=== PATIENT | female | born 1955 | race Caucasian/White ===

== ENCOUNTER 2018-10-09 08:35 | Outpatient (CLI) | payer MEDICARE ==
--- NOTE | 2018-10-09 10:06 | MMO ---
BILATERAL MAMMOGRAMS: DATE: 10/09/18 HISTORY: Screening mammography. COMPARISON: 12/13/16. FINDINGS: Fatty replaced tissue. Benign-appearing calcifications. No dominant mass or suspicious calcifications . The study was evaluated with the assistance of computer-aided detection. IMPRESSION: BIRADS 1: Negative. Suggest routine follow-up. POS: ERNA
== END 2018-10-09 08:36 | disposition home or self-care (01) ==
LOC: SCSMAMMO 08:35
PROVIDERS: ATTEND Family Medicine
DX: Z12.31 Encounter for screening mammogram for malignant neoplasm of breast (principal)
CPT/HCPCS: 77067

== ENCOUNTER 2020-03-23 12:12 | Observation (INO) | payer MEDICARE, OTHER ==
--- NOTE | 2020-03-23 12:41 | RAD ---
EXAM: Chest one view: HISTORY: Chest pain, chest pressure COMPARISON: None FINDINGS: Heart size: Within normal limits. Lungs: Clear of acute process. No evidence for confluent pneumonia, pleural effusion, acute edema, or pneumothorax, or other signifi cant acute process. IMPRESSION: No significant acute intrathoracic disease. Atherosclerosis of the aorta.
[2020-03-23 12:43] LABS: #Basophils 0.1 thou/uL (0.0-0.2); #Eosinphils 0.3 thou/uL (0.0-0.7); #Lymphocytes 2.6 thou/uL (1.20-3.40); #Neutrophils 6.2 thou/uL (1.40-6.50); %Basophils 1.3 % (0.0-1.0); %Lymphocytes 25.7 % (21.0-51.0); %Monocytes 9.3 % (0.0-10.0); %Neutrophils 60.7 % (42.0-75.0); Hemoglobin 16.6 g/dL (12.0-16.0); Mean Corpuscular HGB CONC 34.6 g/dL (32.0-36.0); Mean Corpuscular Hemoglobin 31.5 pg (27.0-31.0); Mean Corpuscular Volume 91.2 fL (78.0-98.0); Mean Platelet Volume 9.6 fL (7.4-10.4); Platelet Count 268 thou/uL (130-400); RBC Distribution Width 11.4 % (11.5-14.5); Red Blood Cell (RBC) Count 5.26 mill/uL (4.20-5.40); White Blood Cell (WBC) Count 10.2 thou/uL (4.8-10.8)
[2020-03-23] MEDS ORDERED: Aspirin Chewable 81 MG TAB ONE (12:46)
[2020-03-23] MEDS ORDERED: Labetalol HCl 100 MG/20 ML VIAL ONE (12:46)
[2020-03-23 13:22] LABS: ALT (SGPT) 59 U/L (8-55); AST (SGOT) 67 U/L (5-34); Albumin 4.4 g/dL (3.4-4.8); Alkaline Phosphatase 108 U/L (40-110); Anion Gap 23 mmol/L (10-20); BUN (Urea Nitrogen) 21 mg/dL (9.8-20.1); Bilirubin, Total 2.2 mg/dL (0.2-1.2); CK (CPK) 91 U/L (29-168); Calc. Creatinine Clearance 0 mL/min (70-130); Calcium 9.9 mg/dL (7.8-10.44); Carbon Dioxide 22 mmol/L (23-31); Chloride 92 mmol/L (98-107); Estimated GFR-MDRD 34; Globulin 3.8 g/dL (2.4-3.5); Glucose 504 mg/dL (80-115); Lipase 206 U/L (8-78); Potassium 4.2 mmol/L (3.5-5.1); Protein, Total 8.2 g/dL (6.0-8.3); Sodium 133 mmol/L (136-145)
[2020-03-23] MEDS ORDERED: Enoxaparin Sodium 100 MG/ML SYRINGE ONE (15:14)
[2020-03-23] MEDS ORDERED: Acetaminophen 650 MG Suppository PR PRN (17:14)
[2020-03-23] MEDS ORDERED: Acetaminophen 325 MG TAB PO PRN (17:14)
[2020-03-23] MEDS ORDERED: Dextrose 50% Abboject 50 ML SYRINGE SLOW IVP PRN (17:26)
[2020-03-23] MEDS ORDERED: Dextrose 5% in Water 1,000 ML IV PRN (17:26)
[2020-03-23] MEDS: Famotidine/PF 20 mg/2ml Vial SLOW IVP SCH (20:47)
[2020-03-23] MEDS: HumaLOG 300 UNITS/3 ML VIAL SC PRN (20:47)
[2020-03-23 21:29] LABS: Albumin 3.9 g/dL (3.4-4.8); Anion Gap 18 mmol/L (10-20); BUN (Urea Nitrogen) 20 mg/dL (9.8-20.1); Calc. Creatinine Clearance 0 mL/min (70-130); Calcium 9.5 mg/dL (7.8-10.44); Carbon Dioxide 27 mmol/L (23-31); Chloride 95 mmol/L (98-107); Estimated GFR-MDRD 36; Glucose 416 mg/dL (80-115); Phosphorus 2.6 mg/dL (2.3-4.7); Potassium 3.4 mmol/L (3.5-5.1); Sodium 137 mmol/L (136-145)
[2020-03-23] MEDS ORDERED: Potassium Chloride 20 MEQ TAB PO SCH (22:30)
--- NOTE | 2020-03-23 23:16 | ULT ---
BILATERAL LOWER EXTREMITY VENOUS DUPLEX STUDY: Date: 03/23/2020 INDICATION: Lower extremity pain and edema. Elevated D-Dimer. FINDINGS: Deep veins evaluated with ultrasound and Doppler, with color Doppler, spectral analysis, and compress ion. FINDINGS: Deep veins of left lower extremity show normal blood flow and compression. Deep veins of right lower extremity show normal blood flow. The right distal superficial femoral vein showed decreased compression. No evidence of thrombus. The decreased compression may represent phleb itis. IMPRESSION: 1. No evidence of lower extremity deep vein thrombosis. 2. Decreased compression in the right superficial vein distally. This could represent phlebitis. Panchito espinosa close clinical follow-up. POS: TRACEY
--- NOTE | 2020-03-24 00:43 | HP ---
TIME OF ASSESSMENT: 1630. PRIMARY CARE PHYSICIAN: Carolyn oJnes MD CHIEF COMPLAINT: Chest pain and shortness of breath with exertion. HISTORY OF PRESENT ILLNESS: Ms. Falk is a pleasant 64-year-old woman who presents to the emergency department due to persisting central chest pressure. The patient states she first started feeling badly approximately 1 month ago with general fatigue and malaise. She states for the last 2 to 3 months, she has not been as active as she used to be with doing her exercises and maintaining an adequate diet. She thought that perhaps it was just the fact that she was out of shape. Her symptoms persisted and then 10 days ago, she developed what she describes as tightness in her chest with soreness across her entire ribcage. The patient has required diuretics for fluid retention in the past. Since then, she also noted associated general bloating and puffiness in her legs. She opted to start her p.r.n. Lasix. She began to feel much better in terms of the tightness, but then felt an underlying substernal pressure. She felt the fluid retention in her legs and that improved as well. She has noted that with minimal exertion she becomes short of breath and fatigued. She was even worried about washing her hair today and her had to help her due to fear that she would pass out. She denies having any fevers, chills, or sweats. Her appetite has been low and p.o. intake has diminished, but she denies any nausea or vomiting. No abdominal pain. She continues to have regular bowel movements once daily. She has not noted any blood in the stools. No urinary symptoms. No cough or hemoptysis. All other review of systems are negative. EMERGENCY DEPARTMENT COURSE: In the emergency department, the patient was noted to be tachycardiac on initial presentation with a heart rate of 120. She had an EKG done showing normal sinus rhythm with a heart rate of [address] changes or T-wave abnormalities. She had a chest x-ray done which showed atherosclerosis of the aorta and otherwise no significant acute intrathoracic disease. She had laboratory studies done which were notable for an elevated D-dimer of 1.18 and an indeterminate troponin of 0.033. Her white count was 10.2, hemoglobin 16.6, hematocrit 48, platelets 268. Sodium 133, potassium 4.2, BUN 21, creatinine 1.53, which has increased from her baseline of 0.88. GFR 34 compared to 64 in October 2019. Glucose 504. Magnesium 2.0. LFTs elevated with a total bilirubin of 2.2, AST 67, ALT 59, alkaline phosphatase 108, lipase 206. CK was 91. BNP less than 10. Albumin 4.4. The patient's sats were normal in the emergency department and given her tachycardia as well as elevated D-dimer, the decision was made in the ED to treat her with enoxaparin and she received 200 mg. She was also scheduled for a V/Q scan given her renal function. The patient received 1 L of normal saline while in the emergency department given her renal function. Due to initial elevated blood pressure of 190/112, she was given labetalol 20 mg IV x1. Blood pressure then improved to 140/79. She was also given 325 mg of aspirin due to the indeterminate troponin. PAST MEDICAL HISTORY: 1. Hyperlipidemia. 2. Hypertension. 3. Prediabetic. 4. Obesity. PAST SURGICAL HISTORY: Colonoscopy in December 2016, status post polypectomy (2 small cecal polyps removed). Noted to have left-sided diverticulosis with internal hemorrhoids. SOCIAL HISTORY: The patient denies any tobacco use, alcohol consumption, or illicit drug use. FAMILY HISTORY: Noncontributory. PHYSICAL EXAMINATION: GENERAL: The patient appears well developed, well nourished, and is in no acute distress. She is resting comfortably on the stretcher. VITAL SIGNS: Temperature 98.5, pulse 77, blood pressure 140/79, respirations 15, O2 100% on room air. HEENT: Normocephalic and atraumatic. Pupils are equal, round, and reactive to light. Sclerae icterus. Oropharynx is clear. Oral mucosa is dry. NECK: Supple. LUNGS: Clear to auscultation bilaterally without any wheezes, rales, or rhonchi. CARDIAC: Regular rate and rhythm. No reproducible chest pain on exam. ABDOMEN: Obese, soft, nontender, nondistended. No guarding or rigidity. Negative Fields sign. EXTREMITIES: She does have puffiness of her feet and lower extremities, but no pitting edema. No calf tenderness. Peripheral pulses present and equal bilaterally. SKIN: Warm and dry. INVESTIGATIONS: As mentioned above in HPI. IMPRESSION AND PLAN: Ms. Falk is a 64-year-old woman who has felt generally unwell for the last month and developed chest pressure 10 days ago with signs and symptoms concerning for fluid retention, which she self treated with Lasix with some improvement. However, she has continued with persistent chest discomfort since then and shortness of breath with exertion. She is being admitted for management of the following. 1. Chest pain. Initial troponin indeterminate and she was given aspirin 325 mg in the ED. We will check lipid panel with morning labs as well as TSH. Continue cardiac monitoring and continue to trend troponins. We will keep the patient n.p.o. after midnight. 2. Shortness of breath with exertion. The patient with an elevated D-dimer and therefore scheduled for V/Q scan which was ordered while she was in the ED. She was also given a one time dose of Lovenox 100 mg subcutaneous. We will await results of V/Q scan, but we will go ahead and order venous Dopplers given the recent lower extremity swelling to assess for possible deep venous thrombosis. If positive, we will continue with anticoagulation. 3. Acute kidney injury. The patient did admit to reduced oral intake. This could be contributing to her general malaise and tachycardia. She is given a liter of normal saline in the ED, but given her history of fluid retention, we will continue with very gentle hydration. Her heart rate has improved to 77, however, she did receive labetalol for her elevated blood pressure. As mentioned above, she will be on cardiac monitoring. The other possible contributing factor for tachycardia is presence of PE and the patient as mentioned is undergoing workup for this as well. 4. Elevated LFTs. The patient without any GI symptoms or abdominal discomfort. We will repeat LFTs with morning labs and we will add on a direct bilirubin. They tend to decide if any further workup indicated. 5. General malaise/fatigue. The patient did state she has been less active than she usually is for the last 2 months due to current issues with COVID and trying to keep herself at home. She could not just be generally deconditioned in combination with acute kidney injury and other underlying issues. We will check for any underlying infection, such as urinary tract infection. We will obtain urinalysis and urine culture. PT/OT has been consulted. 6. Hypertension, uncontrolled on initial presentation, but improved with labetalol. We will monitor blood pressure and reconcile home medications once verified. 7. Hyperglycemia. The patient with glucose of 504. We will continue to monitor blood glucose and reconcile home medications once verified. We will add hemoglobin A1c to morning labs. The patient claims being prediabetic. However, it looks like she has been on metformin in the past. We will initiate insulin sliding scale. 8. Gastrointestinal prophylaxis with famotidine. 9. Code status full. Surrogate decision maker is her , Skyler Falk. 10. COVID testing requested and pending. We will place the patient on isolation precautions. Case was discussed with attending, who agrees with plan of care as described above. She has been feeling generally unwell. With this along, we will go ahead and test for COVID. Job ID: [id number]
[2020-03-24 02:24] VITALS: BMI 55.9
[2020-03-24 05:48] LABS: #Basophils 0.1 thou/uL (0.0-0.2); #Eosinphils 0.4 thou/uL (0.0-0.7); #Lymphocytes 2.8 thou/uL (1.20-3.40); #Neutrophils 4.4 thou/uL (1.40-6.50); %Basophils 1.6 % (0.0-1.0); %Lymphocytes 31.7 % (21.0-51.0); %Monocytes 11.6 % (0.0-10.0); %Neutrophils 50.1 % (42.0-75.0); Hemoglobin 14.9 g/dL (12.0-16.0); Mean Corpuscular HGB CONC 32.6 g/dL (32.0-36.0); Mean Corpuscular Hemoglobin 30.8 pg (27.0-31.0); Mean Corpuscular Volume 94.5 fL (78.0-98.0); Platelet Count 210 thou/uL (130-400); RBC Distribution Width 11.4 % (11.5-14.5); Red Blood Cell (RBC) Count 4.83 mill/uL (4.20-5.40); White Blood Cell (WBC) Count 8.7 thou/uL (4.8-10.8)
[2020-03-24 05:55] LABS: Albumin 3.6 g/dL (3.4-4.8); Anion Gap 16 mmol/L (10-20); BUN (Urea Nitrogen) 20 mg/dL (9.8-20.1); Calc. Creatinine Clearance 107 mL/min (70-130); Calcium 9.1 mg/dL (7.8-10.44); Carbon Dioxide 24 mmol/L (23-31); Chloride 94 mmol/L (98-107); Estimated GFR-MDRD 43; Glucose 309 mg/dL (80-115); Lipase 143 U/L (8-78); Potassium 3.5 mmol/L (3.5-5.1); Sodium 130 mmol/L (136-145); Triglycerides 259 mg/dL (Less than 150)
[2020-03-24 05:56] LABS: Bilirubin, Total 1.7 mg/dL (0.2-1.2)
[2020-03-24 05:57] LABS: Protein, Total 6.7 g/dL (6.0-8.3)
[2020-03-24 06:00] LABS: Alkaline Phosphatase 82 U/L (40-110); Cholesterol 197 mg/dl (< 200 Desired)
[2020-03-24 06:02] LABS: AST (SGOT) 38 U/L (5-34); Bilirubin, Direct 0.6 mg/dL (0.1-0.3)
[2020-03-24 06:03] LABS: ALT (SGPT) 44 U/L (8-55); Cardiac Risk 6.8 (Less than 4.5); HDL Cholesterol 29 mg/dL (>60 Neg Risk); LDL Cholesterol, Calculated 116 mg/dL
[2020-03-24] MEDS: HumaLOG 300 UNITS/3 ML VIAL SC PRN ×4 (06:22→21:53)
[2020-03-24] MEDS ORDERED: Nitroglycerin 0.4 MG TAB (25 Tab Bottle) PO PRN (08:17)
--- NOTE | 2020-03-24 09:19 | PDOC.HOSPP ---
- Subjective Encounter Date: 03/24/20 Encounter Time: 10:02 Subjective: Patient states she has had no worsening or improvement in her chest tightness. Denies any associated SOB. Reports sleeping very well last night and denies any other complaints. States she has been thinking about her glucose and how high it is. She was previously on Metformin but it caused diarrhea therefore she stopped taking it. Reports being noncompliant in the past with keeping up with her appointments and taking her diabetes medications. She saw her PCP a few months ago and resuming meds was something they discussed however she was reluctant and due to staying quarantined she was lost to follow-up. Admits to eating poorly at home the last 2-3 months but states she is willing to do anything to get healthy and take any medications. - Objective Vital Signs & Weight: Vital Signs (12 hours) Temp Pulse Resp BP Pulse Ox 03/24/20 04:27 97.4 F L 75 16 140/83 96 03/23/20 23:13 97.9 F 76 17 120/65 94 L Weight Weight 336 lb 4.8 oz I&O: 03/23/20 03/24/20 03/25/20 06:59 06:59 06:59 Intake Total 300 Balance 300 Result Diagrams: 03/24/20 05:30 03/25/20 04:54 Additional Labs: Accuchecks 03/24/20 03/23/20 06:09 20:39 POC Glucose 314 H 420 H Laboratory Tests 03/23/20 12:31 Potassium 4.2 Creatinine 1.53 H Radiology Reviewed by me: Yes (CXR - no infiltrate) EKG Reviewed by me: Yes (Tele SR) Hospitalist ROS - Review of Systems Constitutional: denies: fever, chills, sweats, weakness, malaise, other Eyes: denies: pain, vision change, conjunctivae inflammation, eyelid inflammation, redness, other ENT: denies: ear pain, ear discharge, nose pain, nose discharge, nose congestion , mouth pain, mouth swelling, throat pain, throat swelling, other Respiratory: reports: SOB with excertion. denies: cough, dry, shortness of breath, hemoptysis, pleuritic pain, sputum, wheezing, other Cardiovascular: denies: chest pain, palpitations, orthopnea, paroxysmal noc. dyspnea, edema, light headedness, other Gastrointestinal: denies: nausea, vomiting, abdominal pain, diarrhea, constipation, melena, hematochezia, other Genitourinary: denies: dysuria, frequency, incontinence, hematuria, retention, other Musculoskeletal: reports: other (leg swelling). denies: neck pain, shoulder pain, arm pain, back pain, hand pain, leg pain, foot pain Skin: denies: rash, lesions, juan, bruising, other Neurological: denies: weakness, numbness, incoordination, change in speech, confusion, seizures, other - Medication Medications: Active Medications Generic Name Dose Route Start Last Admin Trade Name Freq PRN Reason Stop Dose Admin Famotidine 20 mg 03/23/20 21:00 03/23/20 20:47 Pepcid SLOW IVP 20 mg Q12HR CHUCK Administration Insulin Human Lispro 0 units 03/23/20 17:26 03/24/20 06:22 Humalog SC 5 unit .MILD SLIDING SCALE PRN Administration Mild Correctional Scale Insulin Human Lispro 0 units 03/23/20 17:26 03/23/20 20:47 Humalog SC 5 unit .BEDTIME SLIDING SC PRN Administration Bedtime Correctional Scale - Exam General Appearance: NAD Eye: PERRL, anicteric sclera ENT: normocephalic atraumatic, no oropharyngeal lesions, moist mucosa Neck: supple, no lymphadenopathy Heart: RRR, no murmur, no rubs, normal peripheral pulses Respiratory: CTAB, no wheezes, no rales, no ronchi, normal chest expansion Gastrointestinal: soft, non-tender, non-distended, normal bowel sounds Extremities: no cyanosis, no edema Skin: normal turgor, no lesions, no rashes Neurological: cranial nerve grossly intact, normal sensation to touch, no weakness Musculoskeletal: normal tone, normal strength, no muscle wasting Psychiatric: normal affect, normal behavior, A&O x 3 Hosp A/P (1) Chest pain Code(s): R07.9 - CHEST PAIN, UNSPECIFIED Status: Acute Plan: Troponins negative. Continue cardiac monitoring. VQ scan - negative Echo pending (2) SOB (shortness of breath) on exertion Code(s): R06.02 - SHORTNESS OF BREATH Status: Acute Plan: Awaiting VQ scan to rule out PE. Patient with hx of fluid retention, likely HF. Echo done, awaiting results. Continue to monitor sats. (3) Elevated LFTs Code(s): R79.89 - OTHER SPECIFIED ABNORMAL FINDINGS OF BLOOD CHEMISTRY Status : Acute Plan: Slightly improved from yesterday. Direct bili elevated. RUQ US ordered. (4) Yirft-mn-lvdkrcd kidney injury Code(s): N17.9 - ACUTE KIDNEY FAILURE, UNSPECIFIED; N18.9 - CHRONIC KIDNEY DISEASE, UNSPECIFIED Status: Acute Qualifiers: Chronic kidney disease stage: stage 2 (mild) Plan: Improving compared to yesterday. Continue to monitor renal function. Gentle hydration. (5) Morbid obesity Code(s): E66.01 - MORBID (SEVERE) OBESITY DUE TO EXCESS CALORIES Status: Chronic Plan: Reset Merchandiser consult as mentioned. (6) Hypertension Code(s): I10 - ESSENTIAL (PRIMARY) HYPERTENSION Status: Chronic Plan: Monitor BP. Continue home medications. (7) New onset type 2 diabetes mellitus Code(s): E11.9 - TYPE 2 DIABETES MELLITUS WITHOUT COMPLICATIONS Status: Acute Plan: Will check A1C Change sliding scale to moderate Diabetic diet and insulin teaching Pt declining Insulin - Will start Glipizide. (8) Electrolyte abnormality Code(s): E87.8 - OTH DISORDERS OF ELECTROLYTE AND FLUID BALANCE, NEC Status: Acute Plan: Replace Potassium - Plan PT/OT, DVT proph w/SCDs Consults: other (Reset Merchandiser) Disposition pending above results. Discussed with Dr. Daniel who agrees with plan above.
[2020-03-24] MEDS: Famotidine/PF 20 mg/2ml Vial SLOW IVP SCH ×2 (09:57→21:53)
[2020-03-24] MEDS: Aspirin 325 mg Enteric Coated Tablet PO SCH (09:57)
--- NOTE | 2020-03-24 10:08 | NM ---
RADIONUCLIDE LUNG PERFUSION SCAN: Date: 03/24/2020 HISTORY: Lower leg swelling. Elevated D-Dimer. RADIOPHARMACEUTICAL: 6.5 mCi technetium-99m MAA injected intravenously. CORRELATION: Portable chest radiograph from previous day. FINDINGS: There are artifacts on either lateral views. There is fairly homogeneous tracer distribution to both lungs without pleural based, wedge shaped, segmental or subsegmental defects. IMPRESSION: No evidence of pulmonary embolism. POS: MATA
--- NOTE | 2020-03-24 11:20 | ULT ---
US Gallbladder RUQ: 03/24/2020 10:21 AM CLINICAL HISTORY: Elevated bilirubin. STUDY: Limited right upper quadrant ultrasound of abdomen. COMPARISON: None. FINDINGS: Liver: Size: Normal. Echogenicity: Hyperechoic consistent with hepatic steatosis. Contour: Smooth. Mass: None. Bile ducts: No intrahepatic or extrahepatic biliary dilatation. Common bile duct measures 4 mm. Gallbladder: Normal. Pancreas: Head, body, and tail appear normal. Right kidney: No pelvicalyceal dilatation. Right kidney measuring 14.0 cm in length. IMPRESSION: Fatty liver
[2020-03-24] MEDS: Sodium Chloride 0.9% 1,000 ML IV SCH (11:45)
[2020-03-24 11:48] LABS: Bilirubin Small (Negative); Blood, Urine Negative (Negative); Glucose, Urine (Dipstick) >=1000 mg/dL (Negative); Ketone, Urine 40 mg/dL (Negative); Leukocyte Negative (Negative); Nitrite Negative (Negative); Protein, Urine (Dipstick) Negative (Neg-Trace); Urobilinogen 0.2 mg/dL (Less than 2); pH, Urine 5.5 (5.0-9.0)
[2020-03-24 11:57] LABS: Clarity Clear (Clear)
[2020-03-24 11:58] LABS: Bacteria/HPF 2+ HPF (None Seen); RBC/HPF None Seen HPF (0-3); Squamous Epithelial 0-3 HPF (0-3); Urine Culture Reflex Yes Yes; WBC/HPF 0-3 HPF (0-3)
[2020-03-24 16:57] LABS: Hemoglobin A1c 10.2 % (4.0-6.0)
[2020-03-24] MEDS ORDERED: Insulin Glargine 10 UNITS in Pre-Filled Syringe SC SCH (17:00)
[2020-03-24] MEDS ORDERED: glipiZIDE 5 MG TAB PO SCH (17:00)
[2020-03-24] MEDS ORDERED: Enoxaparin Sodium 40 MG/0.4 ML SYRINGE SC SCH (21:00)
[2020-03-25 05:30] LABS: ALT (SGPT) 39 U/L (8-55); AST (SGOT) 30 U/L (5-34); Albumin 3.6 g/dL (3.4-4.8); Alkaline Phosphatase 85 U/L (40-110); Anion Gap 11 mmol/L (10-20); BUN (Urea Nitrogen) 21 mg/dL (9.8-20.1); Bilirubin, Total 1.4 mg/dL (0.2-1.2); Calc. Creatinine Clearance 114 mL/min (70-130); Calcium 9.1 mg/dL (7.8-10.44); Carbon Dioxide 31 mmol/L (23-31); Chloride 100 mmol/L (98-107); Estimated GFR-MDRD 46; Globulin 2.8 g/dL (2.4-3.5); Glucose 258 mg/dL (80-115); Protein, Total 6.4 g/dL (6.0-8.3); Sodium 139 mmol/L (136-145)
[2020-03-25 05:33] LABS: Potassium 2.9 mmol/L (3.5-5.1)
[2020-03-25] MEDS ORDERED: Potassium Chloride 20 MEQ TAB PO SCH (06:45)
[2020-03-25] MEDS: HumaLOG 300 UNITS/3 ML VIAL SC PRN ×2 (06:49→10:45)
[2020-03-25] MEDS ORDERED: Potassium Chloride 20 MEQ/100 ML PREMIX BAG IVPB SCH (07:30)
[2020-03-25] MEDS ORDERED: glipiZIDE 5 MG TAB PO SCH (07:30)
[2020-03-25] MEDS ORDERED: Potassium Chloride 20 MEQ in Premix Bag 1 BAG IVPB SCH (08:00)
[2020-03-25] MEDS: Potassium Chloride 20 MEQ TAB PO SCH ×2 (08:33→10:45)
[2020-03-25] MEDS: Famotidine/PF 20 mg/2ml Vial SLOW IVP SCH (08:34)
[2020-03-25] MEDS: Aspirin 325 mg Enteric Coated Tablet PO SCH (08:34)
[2020-03-25] MEDS: Sodium Chloride 0.9% 1,000 ML IV SCH (08:35)
[2020-03-25] MEDS ORDERED: Insulin Glargine 10 UNITS in Pre-Filled Syringe SC SCH (09:00)
--- NOTE | 2020-03-25 10:41 | DIS ---
DATE OF ADMISSION: 03/23/2020 DATE OF DISCHARGE: 03/25/2020 DISCHARGE DISPOSITION: Home. FOLLOWUP: 1. Follow up with Dr. Jones in 1 week. 2. Follow up with Dr. Yaw Lance for outpatient stress test. The patient was seen and examined on the day of discharge. Denies any new complaints. No chest pain, shortness of breath, or palpitations reported. BRIEF HOSPITAL COURSE: The patient is a 64-year-old female with morbid obesity, hypertension, and prediabetes, presented to the hospital with chest discomfort along with shortness of breath on exertion. Please refer to the history and physical for further details. The patient was admitted to the hospital with a diagnosis of chest discomfort, rule out acute coronary syndrome. Her serial troponins were obtained. The initial troponin was 0.033. The repeat troponins were negative. She was found to have elevated D-dimer at 1.18. Due to acute kidney injury, CT angiogram of the chest was not done. Instead, V/Q scan was obtained in the emergency room that was negative for pulmonary embolism. Bilateral lower extremity Doppler was negative for DVT as well. Stress test could not be obtained due to V/Q scan. She was advised to get a stress test as outpatient. An echocardiogram was obtained that showed ejection fraction 55% to 60% with diastolic dysfunction, mild mitral regurgitation, mild tricuspid regurgitation. She is chest pain free at this time. The patient also was found to have acute kidney injury with creatinine of 1.53 on admission. The creatinine improved to 1.17 at discharge with IV hydration. Baseline creatinine is around 0.88. The patient was also found to have new onset diabetes with A1c of 10.2. A1c earlier this year was 6.1. She was started on Lantus; however, she would prefer to go home on oral hypoglycemics. She was also counseled by dietitian extensively on diabetes. The patient's fasting lipid profile showed cholesterol of 197 with triglyceride 259 with LDL of 116, HDL of 29. Low-dose statins were started due to abnormal LFTs. The patient also had abnormal LFTs on admission with total bilirubin 2.2 with AST of 67, ALT of 59. The bilirubin has improved to 1.4 with normal AST, ALT. Right upper quadrant ultrasound was negative except for fatty liver. The patient understands the above plan of care. She will follow up with Cardiology as outpatient for a stress test. DISCHARGE MEDICATIONS: Include, 1. Aspirin 81 mg daily. 2. Lipitor 10 mg at bedtime. 3. Glipizide 5 mg b.i.d. 4. Lisinopril/HCTZ 10/12.5 daily. 5. Metformin 500 mg b.i.d. 6. Protonix 40 mg daily. 7. Sublingual nitroglycerin as needed. Repeat basic metabolic profile after 1 week is recommended. Primary care physician advised to follow. Job ID: [id number]
[2020-03-25] MEDS ORDERED: cloNIDine 0.1 MG TAB PO PRN (10:55)
[2020-03-25] MEDS ORDERED: hydrALAZINE 20 MG/ML VIAL SLOW IVP PRN (10:55)
[2020-03-25 11:04] VITALS: BP 171/84
[2020-03-25 11:37] VITALS: TEMP 97.7
[2020-03-25 12:17] LABS: Potassium 3.6 mmol/L (3.5-5.1)
--- NOTE | 2020-03-27 14:26 | DIS ---
DATE OF ADMISSION: 03/23/2020 DATE OF DISCHARGE: 03/25/2020 ADDENDUM: FINAL DIAGNOSES: 1. Chest discomfort acute coronary syndrome ruled out. 2. Chronic diastolic dysfunction. 3. Abnormal LFTs of unclear etiology, improving. 4. Fatty liver. 5. Acute kidney injury on chronic kidney disease stage 2. 6. Hypokalemia. 7. Morbid obesity with a BMI of 56. 8. New diagnosis of diabetes mellitus type 2. 9. Hypertension. 10. Hyponatremia. 11. Metabolic acidosis on admission. A followup comprehensive metabolic profile after 1 week is recommended. Primary care physician advised to follow. Job ID: [id number]
== END 2020-03-25 13:41 | disposition home or self-care (01) ==
LOC: ERS 12:12 → ERHOLD 14:04 → 2SE 19:01
PROVIDERS: ADMIT Emergency Medicine; ATTEND Emergency Medicine
DX: R07.89 Other chest pain (principal); E87.2 Acidosis; I12.9 Hypertensive chronic kidney disease with stage 1 through stage 4 chronic kidney disease, or unspecified chronic kidney disease; E11.22 Type 2 diabetes mellitus with diabetic chronic kidney disease; N18.2 Chronic kidney disease, stage 2 (mild); N17.9 Acute kidney failure, unspecified; E66.01 Morbid (severe) obesity due to excess calories; E87.1 Hypo-osmolality and hyponatremia; K76.0 Fatty (change of) liver, not elsewhere classified; E87.8 Other disorders of electrolyte and fluid balance, not elsewhere classified; Z68.43 Body mass index [BMI] 50.0-59.9, adult; Z79.4 Long term (current) use of insulin; Z79.82 Long term (current) use of aspirin; Z79.899 Other long term (current) drug therapy; Z20.828 Contact with and (suspected) exposure to other viral communicable diseases
CPT/HCPCS: 71045; 76705; 78451; 80048; 80053 ×2; 80061; 80069; 80076; 81001; 82550; 82553; 82962 ×3; 83036; 83690 ×2; 83735; 83880; 84132; 84443; 84484 ×2; 85025 ×2; 85379; 87086; 93005; 93306; 93970; 94760 ×2; 96361 ×3; 96365; 96372 ×2; 96375 ×2; 96376 ×2; 97116; 97139 ×5; 97535; 99285; A9540; G0378 ×4; U0002; 36415; 36416; 96374; J1650; J1815; J3480; S0028

== ENCOUNTER 2021-05-10 17:12 | Emergency (ER) | payer MEDICARE | END 2021-05-10 20:21 | disposition home or self-care (01) | LOC: ERS 17:12 | DX: E11.40 Type 2 diabetes mellitus with diabetic neuropathy, unspecified (principal); M79.671 Pain in right foot; E78.5 Hyperlipidemia, unspecified; I10 Essential (primary) hypertension; Z79.899 Other long term (current) drug therapy ==

== ENCOUNTER 2022-01-31 10:54 | Outpatient (CLI) | payer MEDICARE ==
[2022-01-31 21:33] LABS: SARS-CoV-2 PCR by NAA Not Detected (NotDetected)
== END 2022-01-31 10:55 | disposition home or self-care (01) ==
LOC: LABBT 10:54
PROVIDERS: ATTEND Internal Medicine
DX: Z86.010 Personal history of colon polyps (principal); Z20.822 Contact with and (suspected) exposure to COVID-19
CPT/HCPCS: U0003; U0005

== ENCOUNTER 2022-02-05 05:59 | Day surgery (SDC) | payer MEDICARE ==
[2022-01-31 09:56] VITALS: BMI 58.2
[2022-02-05] MEDS ORDERED: Midazolam HCl 2 mg/2 ml Vial ONE (06:43)
[2022-02-05] MEDS ORDERED: PHENYLEPHRINE-NS 100 MCG/ML 10 ML SYRINGE ONE ×2 (08:02→08:46)
[2022-02-05] MEDS ORDERED: PROPOFOL 200 MG/20 ML VIAL ONE (08:02)
[2022-02-05] MEDS ORDERED: Lidocaine 1% PF 5 ML VIAL ONE (08:02)
== END 2022-02-05 09:19 | disposition home or self-care (01) ==
LOC: SDC 05:59
PROVIDERS: ATTEND Internal Medicine
PROC: 0DBK8ZX Excision of Ascending Colon, Via Natural or Artificial Opening Endoscopic, Diagnostic (ICD-10-PCS; principal; 2022-02-05)
PROC: 0DBL8ZX Excision of Transverse Colon, Via Natural or Artificial Opening Endoscopic, Diagnostic (ICD-10-PCS; 2022-02-05)
PROC: 0DBM8ZX Excision of Descending Colon, Via Natural or Artificial Opening Endoscopic, Diagnostic (ICD-10-PCS; 2022-02-05)
PROC: 0DBK8ZX Excision of Ascending Colon, Via Natural or Artificial Opening Endoscopic, Diagnostic (ICD-10-PCS; 2022-02-05)
DX: Z12.11 Encounter for screening for malignant neoplasm of colon (principal); D12.2 Benign neoplasm of ascending colon; D12.3 Benign neoplasm of transverse colon; D12.4 Benign neoplasm of descending colon; K64.4 Residual hemorrhoidal skin tags; K57.30 Diverticulosis of large intestine without perforation or abscess without bleeding; K64.8 Other hemorrhoids; E10.9 Type 1 diabetes mellitus without complications; M10.9 Gout, unspecified; E78.00 Pure hypercholesterolemia, unspecified; I10 Essential (primary) hypertension; E66.9 Obesity, unspecified; Z68.43 Body mass index [BMI] 50.0-59.9, adult; Z86.010 Personal history of colon polyps; Z79.82 Long term (current) use of aspirin; Z79.84 Long term (current) use of oral hypoglycemic drugs; Z79.899 Other long term (current) drug therapy; Z88.8 Allergy status to other drugs, medicaments and biological substances
CPT/HCPCS: 36416; 88305; J2250; J2704